=== PATIENT | female | born 1955 | race Caucasian/White ===

== ENCOUNTER 2020-05-18 08:47 | Outpatient (CLI) | payer BC, SELFPAY ==
--- NOTE | ~2020-05-18 | MM_ITS ---
EXAMINATION: MM screening jazmin BI w cresencio HISTORY: Screening mammogram, family history of breast cancer in her mother. TECHNIQUE: Craniocaudal and mediolateral oblique 3-D tomosynthesis images were obtained and synthetic 2-D images were generated. CAD analysis was submitted and interpreted. COMPARISON: 05/13/2019, 04/22/2018, 04/16/2017 BREAST PARENCHYMAL COMPOSITION: There are scattered areas of fibroglandular density. FINDINGS: RIGHT BREAST: An asymmetry is present in the middle third of the slightly inner breast best appreciat ed 6 cm from the nipple on the craniocaudal view. LEFT BREAST: There is no evidence of suspicious mass, calcification, or architectural distortion to s uggest malignancy. There has been no significant interval change. IMPRESSION: 1. Right breast asymmetry on the craniocaudal view. 2. Additional mammographic views and possible breast ultrasound are recommended. BI-RADS Category 0: Incomplete: Needs additional imaging evaluation. Reviewed, dictated and finalized at location A. IMPRESSION: 1. Right breast asymmetry on the craniocaudal view. 2. Additional mammographic views and possible breast ultrasound are recommended . BI-RADS Category 0: Incomplete: Needs additional imaging evaluation.
== END 2020-05-18 08:48 | disposition home or self-care (01) ==
LOC: ANHIMG 08:50
PROVIDERS: PCP Family Medicine Adolescent Medicine; Visit Provider Nurse Practitioner Obstetrics & Gynecology
DX: Z12.31 Encounter for screening mammogram for malignant neoplasm of breast (principal)
CPT/HCPCS: 77063; 77067

== ENCOUNTER 2020-06-22 10:05 | Outpatient (CLI) | payer BC, SELFPAY ==
--- NOTE | ~2020-06-22 | MM_ITS ---
EXAMINATION: MM diagnostic mammo unilat RT HISTORY: Follow-up right breast asymmetry TECHNIQUE: Additional 3-D tomosynthesis images of the right breast were performed and synthetic 2-D i mages were generated. CAD analysis was submitted and interpreted. COMPARISON: 05/18/2020 BREAST PARENCHYMAL COMPOSITION: Breast composed of scattered areas of fibroglandular density FINDINGS: The focal asymmetry medially in the right breast compresses with spot views, compatible wit h superimposed fibroglandular content. No suspicious masses, calcifications or architectural distorti on in the right breast to suggest malignancy. IMPRESSION: 1. No mammographic evidence for malignancy in the right breast. 2. Routine yearly screening mammogram and regular clinical breast examination are recommended. BI-RADS Category 1: Negative Reviewed, dictated and finalized at location A. IMPRESSION: 1. No mammographic evidence for malignancy in the right breast. 2. Routine yearly screening mammogram and regular clinical breast examination a re recommended. BI-RADS Category 1: Negative
== END 2020-06-22 10:06 | disposition home or self-care (01) ==
LOC: ANHIMG 10:06
PROVIDERS: PCP Family Medicine Adolescent Medicine; Visit Provider Nurse Practitioner Obstetrics & Gynecology
DX: R92.8 Other abnormal and inconclusive findings on diagnostic imaging of breast (principal)
CPT/HCPCS: 77065

== ENCOUNTER 2020-10-05 11:15 | Observation (INO) | payer BC, SELFPAY ==
[2020-10-05] VITALS (10 sets, daily range): BP systolic 89–136; BP diastolic 61–82; PULSE 61–98; RESP 14–17; TEMP 36.2–36.7; O2SAT 99–100; BMI 26.0
--- NOTE | ~2020-10-05 | XR_ITS ---
EXAMINATION: XR chest 1V portable EXAM DATE: 10/05/2020 11:51 INDICATION: dyspnea; SOB onset this a.m. TECHNIQUE: Portable AP frontal chest x-ray was obtained. Comparison is made to prior examination from 01/11/2015. FINDINGS: The lungs are clear. There are no pleural effusions. Cardiac silhouette is prominent but magnified on this AP technique. There is no pneumothorax suspected. The bones and soft tissues are unremarkable. IMPRESSION: No acute cardiopulmonary findings. Reviewed, dictated and finalized at location B. KER HAND
--- NOTE | 2020-10-05 11:35 | ECG_ITS ---
Measurements Intervals Darby Rate: 77 P: 25 IA: 137 QRS: 23 QRSD: 101 T: 8 QT: 375 QTc: 427 Interpretive Statements SINUS RHYTHM WITH SINUS ARRHYTHMIA EARLY PRECORDIAL R/S TRANSITION NONSPECIFIC T-WAVE ABNORMALITY- INFERIOR LEADS BASELINE ARTIFACT- I, II, AVR, AVL, AVF BORDERLINE ECG Electronically Signed On 10-05-2020 12:22:03 [employer] by Tony Scott D.O.
--- NOTE | 2020-10-05 11:40 | ED.GENADULT ---
HPI - General Adult General Chief complaint: Shortness of Breath/Dyspnea Stated complaint: sob/heart palp Time Seen by Provider: 10/05/20 11:34 Source: RN notes reviewed History of Present Illness HPI narrative: Patient presents emergency department from home for shortness of breath. Patient states that symptoms began this morning. She states that she would become short of breath with ambulation or exertion that improves with rest. Currently resting in bed the patient has no complaints of shortness of breath. She states when she does become short of breath she does become lightheaded and feels like she may pass out. She denies any fevers or chills chest pain abdominal pain nausea vomiting or any other symptoms. States that she was feeling fine yesterday denies any previous cardiac or pulmonary history Related Data Home Medications Medication Instructions Recorded Confirmed levothyroxine [Synthroid] 10/05/20 Allergies Allergy/AdvReac Type Severity Reaction Status Date / Time No Known Allergies Allergy Verified 10/05/20 11:41 Review of Systems Review of Systems: Narrative: Gen.: Denies fevers or chills ENT: Denies congestion Respiratory: See HPI CV: Denies chest pain or palpitations GI: Denies abdominal pain nausea, emesis or diarrhea Musculoskeletal: Denies back pain or muscle pain Neuro: Denies numbness, tingling, weakness or focal weakness Skin: Denies rash Except as documented, all other systems reviewed and negative [facility] Past Medical History Medical History (Updated 10/05/20 @ 13:10 by Matteo Stark DO) Patient denies significant medical history Social History Social History (Updated 10/05/20 @ 11:41 by Matteo Stark DO) Smoking status: Never smoker Gender identity (if verbalized by the patient): Female Exam Narrative: Exam Narrative: APPEARANCE: No acute distress, nontoxic, resting in bed EYES: EOMI HEENT: Normocephalic, atraumatic, OMM RESPIRATORY: No respiratory distress Clear to auscultation bilaterally with no rhonchi wheezing or rales. CARDIOVASCULAR: Regular rate and rhythm without murmurs rubs or gallops. ABDOMINAL: Soft, nontender, nondistended, no rebound or guarding Rectal: No hemorrhoids or fissures, moderate amount of black stool that is Hemoccult positive MUSCULOSKELETAl: Moves all extremities. No clubbing, cyanosis or edema. NEURO: Awake and alert. Following commands, speech normal, no focal deficits SKIN:: Warm, dry. No rashes lesions or abrasions PSYCHIATRIC: Normal affect/mood, Course Course Emergency Course: Discussed with patient following hemoglobin rating turned. She states she has been having black stools recently. States she was seen by Dr. Lara approximately a month and a half ago for some stomach pain she had been having and was started on fiber at that time Discussed with Dr. Dave presentation work-up. Agrees with consult at this time Discussed with GRAHAM Turner for Dr Carlos presentation work-up. Agrees with admission Discussed with patient and family results of workup and diagnosis. Discussed need for admission. Patient and family understand and agree to current treatment plan Vital Signs Vital signs: Vital Signs Pulse Rate 75 10/05/20 11:36 Temperature 97.2 F L 10/05/20 11:37 Pulse Rate 62 10/05/20 12:41 Respiratory Rate 14 10/05/20 12:41 Blood Pressure 136/78 10/05/20 12:41 Pulse Oximetry 100 10/05/20 12:41 Medical Decision Making Vital Signs Vital Signs: Vital Signs Pulse Rate 75 10/05/20 11:36 Temperature 97.2 F L 10/05/20 11:37 Pulse Rate 62 10/05/20 12:41 Respiratory Rate 14 10/05/20 12:41 Blood Pressure 136/78 10/05/20 12:41 Pulse Oximetry 100 10/05/20 12:41 Lab Data Result diagrams: 10/05/20 11:38 10/05/20 11:38 Labs: Lab Results 10/05/20 10/05/20 10/05/20 Range/Units 11:38 11:38 12:25 WBC 6.5 (4.5-10.0) K/mm3 RBC 2.60 L (
[2020-10-05 11:45] LABS: Basophils Absolute Auto 0.1 K/mm3 (0.0-0.1); Basophils Percent Auto 0.9 % (0.2-1.2); Eosinophils Absolute Auto 0.1 K/mm3 (0-0.3); Eosinophils Percent Auto 2.2 % (0-4.4); Hematocrit 24.3 % (37.0-47.0); Hemoglobin 7.7 g/dL (12.0-15.0); Immature Granulocyte Absolute 0.02 K/mm3 (0.00-0.031); Immature Granulocyte Percent A 0.3 % (0-0.5); Lymphocytes Absolute Auto 1.34 K/mm3 (0.9-3.2); Lymphocytes Percent Auto 20.7 % (18.3-44.2); Mean Corpuscular HGB Conc 31.7 g/dl (32-36); Mean Corpuscular Hemoglobin 29.6 pg (26-34); Mean Corpuscular Volume 93.5 fl (80-100); Mean Platelet Volume 10.6 fl (7.4-10.4); Monocytes Absolute Auto 0.4 K/mm3 (0.1-0.6); Neutrophils Absolute Auto 4.5 K/mm3 (1.3-6.7); Neutrophils Percent Auto 69.9 % (45.5-73.1); Platelet Count Result 245 k/mm3 (150-375); Red Cell Distribution Width 13.3 % (11.5-14.5); White Blood Count 6.5 K/mm3 (4.5-10.0)
[2020-10-05 11:56] LABS: Anion Gap 4 mmol/L (8-16); Blood Urea Nitrogen 48 mg/dL (7-17); Calcium 8.8 mg/dL (8.4-10.2); Carbon Dioxide 27 mmol/L (22-30); Chloride 107 mmol/L (98-107); Estimated CRCL calculation 58 ml/min; Estimated Glomerular Filt Rate > 60; Glucose 114 mg/dL (65-105); Potassium 4.3 mmol/L (3.4-5.0); Sodium 138 mmol/L (137-145)
[2020-10-05 12:05] LABS: NT Pro B Type Natriuretic Pept 109 PG/ML (5-100)
[2020-10-05 12:48] LABS: Partial Thromboplastin Time 28.3 SECONDS (22.3-36.8)
[2020-10-05] MEDS: PANTOPRAZOLE SODIUM IV 40 MG VIAL IV PUSH (12:50)
[2020-10-05 12:52] LABS: D Dimer 0.27 ug/mL (<0.48)
[2020-10-05 12:57] LABS: Troponin I < 0.012 ng/mL (0.000-0.034)
--- NOTE | 2020-10-05 13:05 | WPDGICN ---
Assessment and Plan Assessment and plan (1) Melena: Code(s): K92.1 - Melena Status: Acute Assessment and Plan: Patient with several day history of melenic stools found to be Hemoccult-positive in the emergency room. Decline in hemoglobin consistent with GI blood loss. Patient has taken nonsteroidal anti-inflammatory agents recently for plantar fasciitis. Suspect she has ulcer disease. Plan to place on proton pump inhibitor therapy follow hemoglobin transfuse if necessary. EGD will be performed in the morning. (2) Anemia due to blood loss: Code(s): D50.0 - Iron deficiency anemia secondary to blood loss (chronic) Status: Acute GI Consult Note Consult date/time: 10/05/20 13:05 HPI: Sabina Ruiz is a 65 year old female Seen in evaluation at the request of the emergency room. Patient in usual state of health began to plastic black melenic stools for 1 day. Presented to the emergency room with shortness of breath. In the ER was found to have Hemoccult black stools as well as a decline in hemoglobin to 7.7. patient denies any abdominal pain Recently.. She has been followed in the office with various abdominal pains that have improved with fiber supplementation felt to be related to irritable bowel syndrome. Patient has complaints of plantar fasciitis for which she takes Motrin on a regular basis about 4 day and has done so for some time. She has no prior known history of ulcer disease. Review of Systems Review of Systems: All systems reviewed & are unremarkable except as noted in HPI and below PMFSH Past Medical History Medical History (Updated 10/05/20 @ 13:07 by Sammy Dave MD) Patient denies significant medical history Social History Social History (Updated 10/05/20 @ 11:41 by Matteo Stark DO) Smoking status: Never smoker Gender identity (if verbalized by the patient): Female Meds Home Medications and Allergies Home Medications Medication Instructions Recorded Confirmed Type levothyroxine [Synthroid] 10/05/20 History Allergies Allergy/AdvReac Type Severity Reaction Status Date / Time No Known Allergies Allergy Verified 10/05/20 11:41 Vital Signs Vital Signs - 24 hr 10/05/20 11:36 10/05/20 11:37 10/05/20 12:13 Temperature 97.2 F L Pulse Rate 75 75 68 Respiratory Rate 17 14 Blood Pressure 121/70 124/67 Pulse Oximetry 100 100 10/05/20 12:41 Temperature Pulse Rate 62 Respiratory Rate 14 Blood Pressure 136/78 Pulse Oximetry 100 Exam Narrative: Exam Narrative: Physical exam reveals patient to be alert. Vital signs stable. HEENT exam unremarkable. She is anicteric. Lungs are clear to auscultation and percussion. Heart is without murmur or extra sounds. Abdominal exam bowel sounds are present soft nontender with no hepatosplenomegaly. Results Labs CBC & Chem 7: 10/05/20 11:38 10/05/20 11:38 Labs: Short CBC 10/05/20 Range/Units 11:38 WBC 6.5 (4.5-10.0) K/mm3 Hgb 7.7 L (12.0-15.0) g/dL Hct 24.3 L (37.0-47.0) % Plt Count 245 (150-375) k/mm3 BMP 10/05/20 11:38 Sodium 138 Potassium 4.3 Chloride 107 Carbon Dioxide 27 BUN 48 H Creatinine 0.90 Glucose 114 H Calcium 8.8 Cardiac Enzymes 10/05/20 Range/Units 12:25 Troponin I < 0.012 (0.000-0.034) ng/mL
--- NOTE | 2020-10-05 15:19 | ADMGEN ---
This patient, Sabina Ruiz, was admitted to Medical Room 241-01. Patient/family oriented to hospital policies and general routines including ID bracelet, bed and alarms, visiting hours, pain management, procedures, bathroom and other care routines, personal items, smoking policy, room service/diet, and visiting hours. Information on how to activate the Rapid Response Team has been discussed. Patient/Family are encouraged to report perceived risks to care and to ask questions if they do not understand what they are told or what they should do.
[2020-10-05 15:37] LABS: Hematocrit 23.8 % (37.0-47.0); Hemoglobin 7.4 g/dL (12.0-15.0)
--- NOTE | 2020-10-05 16:00 | PM.IMHP ---
H&P: HPI History of Present Illness Date/Time: 10/05/20 16:00 Chief complaint: Shortness of breath. Narrative: Sabina Ruiz is a previously healthy 65-year-old female who presented to the emergency department earlier today via private vehicle from home for evaluation of shortness of breath. This morning she developed shortness of breath with ambulation, pounding heart, and feelings of lightheadedness, as though she may lose consciousness. The shortness of breath seems to resolve quite quickly with rest. Her hemoglobin and hematocrit on arrival to the emergency department were 7.7 and 24.3% respectively, and with further questioning she does admit that she had a dark bowel movement today which was in fact guaiac positive. Additionally she tells me that for the last 6 months or so she has had intermittent sharp pains in her stomach which she has attributed to hunger pains, as they would improve after eating. About a month ago she had a period of about a week in which she passed dark stools daily, but that did resolve after she increased her fiber intake and her bowels became more regular. She drinks 1 to 2 caffeinated beverages a day. Since May of this year she has been taking 2 Aleve in the morning and 2 Aleve in the evening for symptoms of plantar fasciitis. Interestingly she denies symptoms of GERD and acid reflux. She has not had bloating or vomiting. No hematemesis. Weight has remained stable. Review of Systems Review of Systems: Narrative: Twelve systems were reviewed with pertinent positives and negatives as per HPI. No recent cold or flu symptoms. She denies exposure to those positive for COVID-19. She denies cough and shortness of breath. No fever, chills, or sweats. Except as documented, all other systems were reviewed and are negative. [facility]LY [facility] Past Medical History Medical History (Updated 10/05/20 @ 22:57 by Yue Galvez PA-C) Hypothyroidism Internal hemorrhoids On screening colonoscopy per Dr. Dave in 2017. Plantar fasciitis of right foot Surgical History Surgical History (Updated 10/05/20 @ 22:56 by Yue Galvez PA-C) History of arthroscopy of left knee (~2007) History of repair of right rotator cuff (~09/2011) Family History Family History Sibling Hypertension Mother Breast cancer Father CHF (congestive heart failure) Acute myocardial infarction Social History Social History (Updated 10/05/20 @ 22:58 by Yue Galvez PA-C) Social History: Surrogate decision maker: Miguel Ramirez, spouse. Code status: Full code. Smoking status: Never smoker Alcohol intake: current Drinks per week: 7 Substance use: never Substance use type: does not use Additional living arrangements comments: Resides in [place] with her . They have 1 child. Additional occupation/education comments: Works in [employer]. Gender identity (if verbalized by the patient): Female Spiritual care concerns: No Meds Home Medications and Allergies Home Medications Medication Instructions Recorded Confirmed Type levothyroxine [Synthroid] 88 mcg PO DAILY 10/05/20 10/05/20 History Allergies Allergy/AdvReac Type Severity Reaction Status Date / Time No Known Allergies Allergy Verified 10/05/20 15:54 Vital Signs Vital Signs - 24 hr 10/05/20 11:36 10/05/20 11:37 10/05/20 12:13 Temperature 97.2 F L Pulse Rate 75 75 68 Respiratory Rate 17 14 Blood Pressure 121/70 124/67 Pulse Oximetry 100 100 10/05/20 12:41 10/05/20 14:07 Temperature Pulse Rate 62 74 Respiratory Rate 14 16 Blood Pressure 136/78 124/82 Pulse Oximetry 100 99 Exam Narrative: Exam Narrative: General: Well-developed female sitting up in bed no distress. Weight: 80.1 kg. BMI: 26.1. HEENT: PERRL, EOMI. Sclerae anicteric. Conjunctiva are pale. Oral mucosa moist. Neck: Supple. Respiratory: Lungs are clear
[2020-10-05 18:42] LABS: Hematocrit 22.5 % (37.0-47.0); Hemoglobin 7.2 g/dL (12.0-15.0)
[2020-10-05] MEDS: PANTOPRAZOLE 40 MG TABLET PO (20:02)
[2020-10-05 23:13] LABS: Hematocrit 21.2 % (37.0-47.0)
[2020-10-05 23:20] LABS: Hemoglobin 6.8 g/dL (12.0-15.0)
[2020-10-06] VITALS (20 sets, daily range): BP systolic 100–129; BP diastolic 48–109; PULSE 59–81; RESP 14–20; TEMP 36.4–37.1; O2SAT 97–100
[2020-10-06] MEDS: SODIUM CHLORIDE 0.9% IV 250 ML 30 ML IV CONT (03:36)
[2020-10-06] MEDS: LEVOTHYROXINE SODIUM 88 MCG TABLET PO (05:52)
[2020-10-06 07:51] LABS: Basophils Absolute Auto 0.1 K/mm3 (0.0-0.1); Basophils Percent Auto 0.9 % (0.2-1.2); Eosinophils Absolute Auto 0.2 K/mm3 (0-0.3); Eosinophils Percent Auto 4.1 % (0-4.4); Hematocrit 28.4 % (37.0-47.0); Hemoglobin 9.3 g/dL (12.0-15.0); Immature Granulocyte Absolute 0.03 K/mm3 (0.00-0.031); Immature Granulocyte Percent A 0.5 % (0-0.5); Lymphocytes Absolute Auto 1.67 K/mm3 (0.9-3.2); Lymphocytes Percent Auto 29.6 % (18.3-44.2); Mean Corpuscular HGB Conc 32.7 g/dl (32-36); Mean Corpuscular Hemoglobin 28.8 pg (26-34); Mean Corpuscular Volume 87.9 fl (80-100); Mean Platelet Volume 10.9 fl (7.4-10.4); Monocytes Absolute Auto 0.5 K/mm3 (0.1-0.6); Monocytes Percent Auto 8.7 % (2.6-8.5); Neutrophils Absolute Auto 3.2 K/mm3 (1.3-6.7); Neutrophils Percent Auto 56.2 % (45.5-73.1); Platelet Count Result 205 k/mm3 (150-375); Red Blood Count 3.23 M/mm3 (4.2-5.4); Red Cell Distribution Width 13.9 % (11.5-14.5); White Blood Count 5.6 K/mm3 (4.5-10.0)
[2020-10-06 08:07] LABS: Alanine Aminotransferase 19 U/L (4-35); Albumin Level 3.3 g/dL (3.5-5.1); Alkaline Phosphatase 84 U/L (38-126); Anion Gap 3 mmol/L (8-16); Aspartate Amino Transferase 21 U/L (14-36); Bilirubin,Total 1.4 mg/dL (0.2-1.3); Blood Urea Nitrogen 27 mg/dL (7-17); Calcium 8.8 mg/dL (8.4-10.2); Carbon Dioxide 28 mmol/L (22-30); Chloride 109 mmol/L (98-107); Estimated CRCL calculation 58 ml/min; Estimated Glomerular Filt Rate > 60; Glucose 95 mg/dL (65-105); Magnesium 2.1 mg/dL (1.6-2.3); Sodium 140 mmol/L (137-145)
--- NOTE | 2020-10-06 09:07 | WPDANESEPPF ---
Anes - Initial Pre Proc Eval Procedure: Operation Date: 10/06/20 11:00 Proposed Procedures p Esophagogastroduodenoscopy - Sammy Dave MD Date/Time: 10/06/20 09:07 Surgeon: Veena Carlos MD Pre Op Diagnosis: Shortness of breath. Patient Data Age: 65 Gender: F Height: 1.75 m Weight: 80.1 kg Last Vital Signs Temp 36.6 C 10/06/20 06:30 Pulse 71 10/06/20 06:30 Resp 14 10/06/20 06:30 BP 107/57 L 10/06/20 06:30 Pulse Ox 100 10/06/20 06:30 Allergies Allergy/AdvReac Type Severity Reaction Status Date / Time No Known Allergies Allergy Verified 10/05/20 15:54 Home Medications Medication Instructions Recorded Confirmed Type levothyroxine [Synthroid] 88 mcg PO DAILY 10/05/20 10/05/20 History Laboratory Tests 10/05/20 10/05/20 10/05/20 11:38 11:38 12:25 WBC 6.5 K/mm3 K/mm3 (4.5-10.0) RBC 2.60 M/mm3 L M/mm3 (4.2-5.4) Hgb 7.7 g/dL L g/dL (12.0-15.0) Hct 24.3 % L % (37.0-47.0) MCV 93.5 fl fl (80-100) MCH 29.6 pg pg (26-34) MCHC 31.7 g/dl L g/dl (32-36) RDW 13.3 % % (11.5-14.5) Plt Count 245 k/mm3 k/mm3 (150-375) MPV 10.6 fl H fl (7.4-10.4) Immature Gran % (Auto) 0.3 % % (0-0.5) Neut % (Auto) 69.9 % % (45.5-73.1) Lymph % (Auto) 20.7 % % (18.3-44.2) [place] % (Auto) 6.0 % % (2.6-8.5) Eos % (Auto) 2.2 % % (0-4.4) Baso % (Auto) 0.9 % % (0.2-1.2) Lymph # (Auto) 1.34 K/mm3 K/mm3 (0.9-3.2) [place] # (Auto) 0.4 K/mm3 K/mm3 (0.1-0.6) Eos # (Auto) 0.1 K/mm3 K/mm3 (0-0.3) Baso # (Auto) 0.1 K/mm3 K/mm3 (0.0-0.1) Abs Immat Gran (auto) 0.02 K/mm3 K/mm3 (0.00-0.031) Absolute Neuts (auto) 4.5 K/mm3 K/mm3 (1.3-6.7) Absolute Nucleated RBC 0.0 K/mm3 K/mm3 (0.0-0.012) Nucleated RBC % 0.0 % % (0.0-0.2) PT 14.0 Seconds Seconds (11.1-14.7) INR 1.0 APTT 28.3 SECONDS SECONDS (22.3-36.8) D-Dimer 0.27 ug/mL ug/mL (<0.48) Sodium 138 mmol/L mmol/L (137-145) Potassium 4.3 mmol/L mmol/L (3.4-5.0) Chloride 107 mmol/L mmol/L (98-107) Carbon Dioxide 27 mmol/L mmol/L (22-30) Anion Gap 4 mmol/L L mmol/L (8-16) BUN 48 mg/dL H mg/dL (7-17) Creatinine 0.90 mg/dL mg/dL (0.7-1.0) Estim Creat Clear Calc 58 ml/min ml/min Estimated GFR > 60 (59 - ) Glucose 114 mg/dL H mg/dL (65-105) Calcium 8.8 mg/dL mg/dL (8.4-10.2) Magnesium Total Bilirubin Direct Bilirubin AST ALT Alkaline Phosphatase Troponin I NT-Pro-B Natriuret Pep 109 PG/ML H PG/ML (5-100) Total Protein Albumin TSH (Reflex) Free T4 Blood Type Antibody Screen Crossmatch 10/05/20 10/05/20 10/05/20 12:25 12:25 15:18 WBC RBC Hgb 7.4 g/dL L g/dL (12.0-15.0) Hct 23.8 % L % (37.0-47.0) MCV MCH MCHC RDW Plt Count MPV Immature Gran % (Auto) Neut % (Auto) Lymph % (Auto) [place] % (Auto) Eos % (Auto) Baso % (Auto) Lymph # (Auto) [place] # (Auto) Eos # (Auto) Baso # (Auto) Abs Immat Gran (auto) Absolute Neuts (auto) Absolute Nucleated RBC Nucleated RBC % PT INR APTT D-Dimer Sodium Potassium Chloride Carbon Dioxide Anion Gap BUN C
--- NOTE | 2020-10-06 10:29 | PC.NURSE ---
To GI lab per kali.
[2020-10-06] MEDS: LACTATED RINGERS 1,000 ML 150 ML IV CONT (10:50)
[2020-10-06 11:23] LABS: Free T4 Free Thyroxine Reflex 1.09 ng/dL (0.78-2.19)
[2020-10-06 12:23] LABS: Total Triiodothyronine (T3) 0.94 NG/ML (0.97-1.69)
--- NOTE | 2020-10-06 12:35 | PC.NURSE ---
Pt returned from GI lab per kali.
[2020-10-06] MEDS: PANTOPRAZOLE 40 MG TABLET PO (13:03)
--- NOTE | 2020-10-06 13:25 | PM.DS ---
DS: Admitting Diagnosis Admitting Diagnosis Admitting Diagnosis: Shortness of breath. DS: Discharge Diagnosis Discharge Diagnosis (1) Anemia due to blood loss: Code(s): D50.0 - Iron deficiency anemia secondary to blood loss (chronic) Status: Acute (2) Melena: Code(s): K92.1 - Melena Status: Acute (3) Hypothyroidism: Code(s): E03.9 - Hypothyroidism, unspecified Status: Acute (4) Symptomatic anemia: Code(s): D64.9 - Anemia, unspecified Status: Acute DS: Summary Hospital Course Reason for hospitalization: Anemia Hospital Course: 65 yo who presented to the hospital with fatigue, SOB and epigastric pain. She was found to be anemic with a HB of 7 on admission, while she was here it dropped to 6 and she received two units of PRBC. Patient was found to be guaiac positive and have melena , had an upper endoscopy that showed possible gastritis with no active bleeding, the most likely cause of her gastritis is NSAID related, apparently she was taking scheduled ibuprofen for plantar fascitis,she was advised to avoid NSAID's. She will be discharged on protonix and should follow up with GI and PCP. Status at Discharge Functional status at discharge: independent ambulation Overall status at discharge: patient is back to baseline Time Spent with Patient Time attestation: Total time spent providing and/or coordinating discharge services: Time spent: Greater than 30 minutes Exam Const: General: cooperative, comfortable and no acute distress HENMT: Head: normal to inspection Neck: Neck: normal visual inspection and supple Resp: Effort & Inspection: normal respiratory effort and able to speak in complete sentences Auscultation: clear to auscultation bilaterally Cardio: Rate: regular rate Rhythm: regular rhythm Heart sounds: S1 normal heart sound present and S2 normal heart sound present GI: Inspection: normal to inspection GI Palp: Yes abdominal tenderness and Yes Soft to palpation Auscultation: normal bowel sounds Other: Mild epigastric tenderness Skin: General skin exam: normal color and no rashes or lesions noted Neuro: General: patient oriented x3 and no focal motor deficits Extrem: General: no clubbing, cyanosis or edema DS: Data Data Completed and Pending Pending studies at discharge: Pending at discharge 10/06/20 11:35 Surgical [PTH] Routine Labs on day of discharge: Labs from last 24 hours 1110/06/20 10/06/20 07:37 07:37 07:37 WBC RBC Hgb Hct MCV MCH MCHC RDW Plt Count MPV Immature Gran % (Auto) Neut % (Auto) Lymph % (Auto) [place] % (Auto) Eos % (Auto) Baso % (Auto) Lymph # (Auto) [place] # (Auto) Eos # (Auto) Baso # (Auto) Abs Immat Gran (auto) Absolute Neuts (auto) Absolute Nucleated RBC Nucleated RBC % Sodium Potassium Chloride Carbon Dioxide Anion Gap BUN Creatinine Estim Creat Clear Calc Estimated GFR Glucose Calcium Magnesium Total Bilirubin Direct Bilirubin AST ALT Alkaline Phosphatase Total Protein Albumin TSH (Reflex) 9.020 H Free T4 1.09 Total T3 0.94 L Blood Type Antibody Screen Crossmatch 10/06/20 10/06/20 10/05/20 07:37 07:37 23:03 WBC 5.6 RBC 3.23 L Hgb 9.3 L 6.8 L* Hct 28.4 L 21.2 L MCV 87.9 D MCH 28.8 MCHC 32.7 RDW 13.9 Plt Count 205 MPV 10.9 H Immature Gran % (Auto) 0.5 Neut % (Auto) 56.2 Lymph % (Auto) 29.6 [place] % (Auto) 8.7 H Eos % (Auto) 4.1 Baso % (Auto) 0.9 Lymph # (Auto) 1.67 [place] # (Auto) 0.5 Eos # (Auto) 0.2 Baso # (Auto) 0.1 Abs Immat Gran (auto) 0.03 Absolute Neuts (auto) 3.2 Absolute Nucleated RBC 0.0 Nucleated RBC % 0.0 Sodium 140 Potassium 4.0 Chloride 109 H Carbon Dioxide 28 Anion Gap 3 L BUN 27 H D Creatinine 0.90 Estim
== END 2020-10-06 14:20 | disposition home or self-care (01) ==
LOC: ANHED 13:10 → ANH2MED 22:55
PROVIDERS: Internal Medicine Gastroenterology; Physician Assistant; Admitting Provider Family Medicine; Emergency Provider Emergency Medicine; PCP Family Medicine Adolescent Medicine; Visit Provider Hospitalist
PROC: 0DJ08ZZ Inspection of Upper Intestinal Tract, Via Natural or Artificial Opening Endoscopic (ICD-10-PCS; CPT 43235; principal; 2020-10-06 11:00)
DX: K25.0 Acute gastric ulcer with hemorrhage (principal); D62 Acute posthemorrhagic anemia; M72.2 Plantar fascial fibromatosis; R42 Dizziness and giddiness; E03.9 Hypothyroidism, unspecified; K64.8 Other hemorrhoids; K29.51 Unspecified chronic gastritis with bleeding
CPT/HCPCS: 43239; 36415; 36430; 71045; 80048; 80076; 83735; 83880; 84439; 84443; 84480; 84484; 85014; 85018; 85025; 85380; 85610; 85730; 86850; 86900; 86901; 86923; 88305; 88342; 93005; 96361; 96374; 99285; A9270; C9113; G0378; J2704; J7050; J7120; P9016

== ENCOUNTER → 2021-05-31 11:33 | Outpatient (CLI) | payer OTHER, SELFPAY ==
--- NOTE | ~2021-05-31 | MM_ITS ---
EXAMINATION: MM screening jazmin BI w cresencio HISTORY: Screening TECHNIQUE: Craniocaudal and mediolateral oblique 3-D tomosynthesis images were obtained and synthetic 2-D images were generated. CAD analysis was submitted and interpreted. COMPARISON: Comparison to multiple prior studies sequentially, with oldest reviewed study dated 01/25. BREAST PARENCHYMAL COMPOSITION: There are scattered areas of fibroglandular density. FINDINGS: There is no evidence of suspicious mass, calcification, or architectural distortion to sugg est malignancy in either breast. There has been no suspicious interval change. IMPRESSION: 1. No mammographic evidence of malignancy. 2. Recommend routine screening mammography in one year. BI-RADS Category 1: Negative Reviewed, dictated and finalized at location A.
== END ==
PROVIDERS: PCP Family Medicine Adolescent Medicine; Visit Provider Nurse Practitioner Obstetrics & Gynecology
DX: Z12.31 Encounter for screening mammogram for malignant neoplasm of breast (principal)
CPT/HCPCS: 77063; 77067

== ENCOUNTER → 2021-06-28 08:24 | Outpatient (CLI) | payer OTHER, SELFPAY ==
--- NOTE | ~2021-06-28 | XR_ITS ---
EXAMINATION: XR hip RT min 2V EXAM DATE: 06/28/2021 08:53 INDICATION: No known recent injury provided at this time. Pain of the right hip. Pt c/o pain in right hip lateral side, radiates down right leg, occasional sharp pain through groin x 1 year and a 1/2, n o trauma, no surg., no cancer. TECHNIQUE: Right hip frontal, 'frog leg' projections for interpretation. There is no prior study fo r comparison. FINDINGS: Smooth right hip femoral head contour, no radiographic evidence of avascular necrosis. The re is mild right hip primary osteoarthritis. There are no acute fractures or dislocations identified. There is no subcutaneous gas. The soft tissue is unremarkable. There are no radiopaque foreign b odies. IMPRESSION: Mild right hip osteoarthritis. Reviewed, dictated and finalized at location A.
== END ==
PROVIDERS: PCP Nurse Practitioner Family; Visit Provider Nurse Practitioner Family
DX: M25.551 Pain in right hip (principal); M16.11 Unilateral primary osteoarthritis, right hip
CPT/HCPCS: 73502

== ENCOUNTER → 2021-07-12 11:09 | Outpatient (CLI) | payer OTHER, SELFPAY ==
--- NOTE | ~2021-07-12 | DEXA_ITS ---
Bone Density Report Name: Sabina Ruiz Age: 65 Sex: Female Ethnicity: White Date of : 1955 Indication: postmenopausal; screening for osteoporosis; Referring Provider: Gemini, Maddy Hansen Study: Bone densitometry was performed. Exam Date: July 12, 2021 Accession number: [id number] Bone Density: Region BMD T-score Z-score Classification AP Spine (L1-L4) 0.971 -0.7 1.1 Normal Femoral Neck (Left) 0.791 -0.5 1.0 Normal Total Hip (Left) 0.922 -0.2 1.0 Normal Femoral Neck (Right) 0.818 -0.3 1.2 Normal Total Hip (Right) 0.894 -0.4 0.8 Normal Total Hip Mean 0.908 -0.3 0.9 Normal World Health Organization criteria for BMD impression classify patients as: Normal (T-score at or above -1.0), Osteopenia (T-score between -1.0 and -2.5), or Osteoporosis (T-score at or below -2.5). 10-year Fracture Risk: FRAX not reported because: All T-scores for Spine Total, Hip Total, Femoral Neck at or above -1.0 Previous Exams: Region Exam Age BMD T-score BMD Change BMD Change Date g/cm2 vs Baseline vs Previous AP Spine(L1-L4) 07/12/2021 65 0.971 -0.7 -0.133* -0.038* 11/20/2011 56 1.010 -0.3 -0.094* -0.094* 08/13/2007 51 1.104 0.5 Total Hip(Left) 07/12/2021 65 0.922 -0.2 -0.120* -0.039* 11/20/2011 56 0.960 0.2 -0.081* -0.081* 08/13/2007 51 1.042 0.8 Total Hip(Right) 07/12/2021 65 0.894 -0.4 -0.098* -0.029* 11/20/2011 56 0.923 -0.2 -0.069* -0.069* 08/13/2007 51 0.992 0.4 *Denotes significance at 95% confidence level, LSC for AP Spine = 0.022 g/cm2, LSC for Total Hip = 0.027 g/cm2 Clinical Information Provided by Patient: Has used the following medications: Calcium Patient maximum height was 69 Menopause Age: 53 No regular weight bearing exercise Does not regularly consume dairy products Drinks caffeinated beverages Onset of menses at age 15 Number of children 1 Impression: The patient has normal bone mass. The BMD for the AP Spine(L1-L4) decreased, changing by -0.038 since the last DXA exam. The BMD for the Total Hip(Left) decreased, changing by -0.039 since the last DXA exam. The BMD for the Total Hip(Right) decreased, changing by -0.029 since the last DXA exam. Discussion: BONE DENSITY IS ABOVE THE MINIMUM DESIRABLE LEVEL AT ALL SKELETAL SITES TESTED. This patient?s bone mineral density is above the minimum mika
== END ==
PROVIDERS: PCP Nurse Practitioner Family; Visit Provider Nurse Practitioner Obstetrics & Gynecology
DX: M85.80 Other specified disorders of bone density and structure, unspecified site (principal)
CPT/HCPCS: 77080

== ENCOUNTER 2021-09-13 10:55 | Outpatient (CLI) | payer OTHER, SELFPAY | END 2021-09-13 10:56 | disposition home or self-care (01) | LOC: ANHAUDIO 10:57 | PROVIDERS: PCP Nurse Practitioner Family; Visit Provider Nurse Practitioner Family | DX: H91.93 Unspecified hearing loss, bilateral (principal) | CPT/HCPCS: 92557; 92567 ==

== ENCOUNTER 2022-02-08 08:56 | Outpatient (RCR) | payer OTHER, SELFPAY | END 2022-02-08 23:59 | disposition home or self-care (01) | LOC: ANHAUDIO 08:56 | PROVIDERS: PCP Nurse Practitioner Family; Visit Provider Nurse Practitioner Family | DX: Z46.1 Encounter for fitting and adjustment of hearing aid (principal) | CPT/HCPCS: 99199 ==

== ENCOUNTER → 2022-03-01 09:56 | Outpatient (CLI) | payer OTHER, SELFPAY ==
--- NOTE | ~2022-03-01 | XR_ITS ---
XR lumbar spine 2-3V DATE: 03/01/2022 10:42 INDICATION: Low back pain TECHNIQUE: AP, lateral, coned lateral lumbosacral views COMPARISON: None FINDINGS: There is osteopenia. There is slight levoscoliosis of the lumbar spine. There is minimal degenerative spurring of the lumbar spine. There is moderate loss interspace of heig ht at L5-S1. The sacroiliac joints are intact. IMPRESSION: Slight levoscoliosis Osteopenia Mild degenerative change Reviewed, dictated and finalized at location A.
== END ==
PROVIDERS: PCP Nurse Practitioner Family; Visit Provider Nurse Practitioner Family
DX: M54.50 Low back pain, unspecified (principal); M41.86 Other forms of scoliosis, lumbar region; M85.88 Other specified disorders of bone density and structure, other site
CPT/HCPCS: 72100

== ENCOUNTER → 2022-07-18 11:21 | Outpatient (CLI) | payer OTHER, SELFPAY ==
--- NOTE | ~2022-07-18 | MM_ITS ---
EXAMINATION: MM screening jazmin BI w cresencio HISTORY: Screening mammogram TECHNIQUE: Craniocaudal and mediolateral oblique 3-D tomosynthesis images were obtained and synthetic 2-D images were generated. CAD analysis was submitted and interpreted. COMPARISON: bilateral screening mammogram 06/22/2020 diagnostic right mammogram 05/18/2020, 05/13/2019 bilateral screening mammogram examinations BREAST PARENCHYMAL COMPOSITION: There are scattered areas of fibroglandular density. FINDINGS: There is no evidence of suspicious mass, calcification, or architectural distortion to sugg est malignancy in either breast. There has been no suspicious interval change. IMPRESSION: 1. No mammographic evidence of malignancy. 2. Recommend routine screening mammography in one year. BI-RADS Category 1: Negative Reviewed, dictated and finalized at location A.
== END ==
PROVIDERS: PCP Nurse Practitioner Family; Visit Provider Nurse Practitioner Family
DX: Z12.31 Encounter for screening mammogram for malignant neoplasm of breast (principal)
CPT/HCPCS: 77063; 77067

== ENCOUNTER 2022-10-18 00:15 | Day surgery (SDC) | payer OTHER, SELFPAY ==
[2022-10-09 11:22] VITALS: BMI 26.6
[2022-10-18 12:25] VITALS: BP 111/72; PULSE 66; RESP 18; TEMP 36.1; O2SAT 100; BMI 26.4
--- NOTE | 2022-10-18 12:26 | WPDANESEPPF ---
Anes - Initial Pre Proc Eval Procedure: Operation Date: 10/18/22 13:45 Proposed Procedures p Esophagogastroduodenoscopy - Sammy Dave MD Date/Time: 10/18/22 12:26 Surgeon: Sammy Dave MD Pre Op Diagnosis: low abd pain,hx marcelo ulcer,fecal abnormalities Patient Data Age: 67 Gender: F Height: 1.75 m Weight: 82 kg Allergies Allergy/AdvReac Type Severity Reaction Status Date / Time No Known Allergies Allergy Verified 10/18/22 12:30 Home Medications Medication Instructions Recorded Confirmed Type acetaminophen 500 mg tablet 100 mg PO DAILY 10/09/22 10/18/22 History (Acetaminophen Extra Strength) evening primrose oil 500 mg capsule 500 mg PO DAILY 10/09/22 10/18/22 History levothyroxine 100 mcg tablet 100 mcg PO DAILY 10/09/22 10/18/22 History psyllium husk 0.4 gram capsule 0.4 g PO DAILY 10/09/22 10/18/22 History (Daily Fiber) Patient hx anesthesia problems: none Family hx anesthesia problems: none Results Review: All pre-operative results and documents have been reviewed as part of the pre-operative evaluation. [facility] Past Medical History Medical History Anemia due to blood loss GI bleed Hypothyroidism Internal hemorrhoids On screening colonoscopy per Dr. Dave in 2017. Melena Plantar fasciitis of right foot Surgical History Surgical History History of arthroscopy of left knee (~2007) History of repair of right rotator cuff (~09/2011) Family History Family History Sibling Hypertension Mother Breast cancer Father CHF (congestive heart failure) Acute myocardial infarction Social History Social History Social History: Surrogate decision maker: Miguel Ramirez, spouse. Code status: Full code. Smoking status: Never smoker Alcohol intake: current Drinks per week: 4 Substance use: never Substance use type: does not use Living arrangements: with family Additional living arrangements comments: Resides in [place] with her . They have 1 child. Additional occupation/education comments: Works in [employer]. Gender identity (if verbalized by the patient): Female Spiritual care concerns: No Anes - Eval Final PreProcedure Day of Procedure 10/18/22 12:26 Patient weight: overweight Heart: regular rate and rhythm Lungs: clear to auscultation and normal air movement Airway: Mallampati scale class II Neurological: alert and oriented Last oral intake: >/= 8 hours ASA classification: II Emergent: no Anesthetic plan: proceed Anesthesia type and monitoring: general GIVS Results Review: All pre-operative results and documents have been reviewed as part of the pre-operative evaluation. Informed Consent: The patient's anesthetic plan and its attendant risks and benefits were discussed with the patient/family/POA. Questions were solicited and answers provided to the satisfaction of the patient/family/POA.
[2022-10-18] MEDS: LACTATED RINGERS 1,000 ML 150 ML IV CONT (12:39)
--- NOTE | 2022-10-18 13:28 | WPDHPUPDATE1 ---
History and Physical Update Update Date/Time: 10/18/22 13:28 History and Physical has been reviewed, including an updated exam of the patient. There are NO changes in the patient's condition. Risks, benefits, and alternatives have been discussed and questions answered. Patient agrees to proceed with procedure.
[2022-10-18 14:10] VITALS: BP 122/73; PULSE 65; RESP 23; O2SAT 100
[2022-10-18 14:20] VITALS: BP 137/81; PULSE 60; RESP 20; O2SAT 100
[2022-10-18 14:30] VITALS: BP 144/82; PULSE 61; RESP 14; O2SAT 100
== END 2022-10-18 14:42 | disposition home or self-care (01) ==
PROVIDERS: PCP Nurse Practitioner Family; Visit Provider Internal Medicine Gastroenterology
PROC: 0DJ08ZZ Inspection of Upper Intestinal Tract, Via Natural or Artificial Opening Endoscopic (ICD-10-PCS; CPT 43235; principal; 2022-10-18 13:45)
DX: R10.31 Right lower quadrant pain (principal); R19.5 Other fecal abnormalities; Z87.11 Personal history of peptic ulcer disease; E03.9 Hypothyroidism, unspecified
CPT/HCPCS: 43239; 87081; J2704; J7120

== ENCOUNTER → 2023-08-07 12:05 | Outpatient (CLI) | payer MEDICARE, SELFPAY ==
--- NOTE | ~2023-08-07 | MM_ITS ---
EXAMINATION: MM screening jazmin BI w cresencio HISTORY: Screening mammogram TECHNIQUE: Craniocaudal and mediolateral oblique 3-D tomosynthesis images were obtained and synthetic 2-D images were generated. CAD analysis was submitted and interpreted. COMPARISON: 07/18/2022, 05/31/2021 bilateral screening mammogram examinations BREAST PARENCHYMAL COMPOSITION: There are scattered areas of fibroglandular density. FINDINGS: Stable mild fibroglandular asymmetry There is no evidence of suspicious mass, calcification , or architectural distortion to suggest malignancy in either breast. There has been no suspicious in terval change. IMPRESSION: 1. No mammographic evidence of malignancy. 2. Recommend routine screening mammography in one year. BI-RADS Category 1: Negative Reviewed, dictated and finalized at location A.
== END ==
PROVIDERS: PCP Nurse Practitioner Family; Visit Provider Nurse Practitioner Family
DX: Z12.31 Encounter for screening mammogram for malignant neoplasm of breast (principal)
CPT/HCPCS: 77063; 77067

== ENCOUNTER 2024-05-27 08:08 | Outpatient (CLI) | payer MEDICARE, SELFPAY ==
--- NOTE | ~2024-05-27 | US_ITS ---
Limited ABDOMINAL ULTRASOUND Ordering provider: Suly Lou PA-C History: . R79.89 - Other specified abnormal findings of blood chemi... . Comparison: None. FINDINGS: LIVER: Normal size and echotexture. The liver measures 15.5 cm. Slightly lobulated outline of the berny er is noted. Evaluation for cirrhosis is advised. No focal hepatic lesions or perihepatic fluid colle ctions are identified. Normal flow of the portal vein. GALLBLADDER: Unremarkable. Gallbladder fold is noted. THICKNESS is 2 mm. No evidence for stones, sludge, gallbladder wall thicke roselia or pericholecystic fluid collections. A negative sonographic Deluca's sign was noted. BILIARY DUCTS: No evidence for intra or extrahepatic biliary dilation. Common bile duct measures 3.1 mm in diameter which is within normal limits. PANCREAS: Normal echotexture and size. KIDNEYS: Right measures 4.2x 13.1x 4.8 cm in length cm in length. There is no evidence for hydronephr osis, solid renal mass, renal calculi or perinephric fluid collections. No renal cysts. UPPER ABDOMINAL AORTA: Normal in caliber. IVC: Patent. FREE FLUID: None. IMPRESSION: 1. Slightly lobulated outline of the liver. Evaluation for cirrhosis advised. Otherwise, Unremarkable complete ultrasound of the abdomen. Reviewed, dictated and finalized at location A. IMPRESSION: 1. Slightly lobulated outline of the liver. Evaluation for cirrhosis advised. O therwise, Unremarkable complete ultrasound of the abdomen.
== END 2024-05-27 08:09 | disposition home or self-care (01) ==
PROVIDERS: PCP Family Medicine; Visit Provider Physician Assistant Medical
DX: R79.89 Other specified abnormal findings of blood chemistry (principal)
CPT/HCPCS: 76705

== ENCOUNTER 2024-06-24 09:54 | Outpatient (CLI) | payer MEDICARE, SELFPAY ==
[2024-06-24 11:03] LABS: Hemoglobin 12.6 g/dL (12.0-15.0); Mean Corpuscular HGB Conc 32.3 g/dl (32-36); Mean Corpuscular Hemoglobin 31.6 pg (26-34); Mean Corpuscular Volume 97.7 fl (80-100); Mean Platelet Volume 11.5 fl (7.4-10.4); Platelet Count Result 224 k/mm3 (150-375); Red Blood Count 3.99 M/mm3 (4.2-5.4); Red Cell Distribution Width 12.3 % (11.5-14.5); White Blood Count 5.4 K/mm3 (4.5-10.0)
[2024-06-24 11:12] LABS: Prothrombin Time 13.3 Seconds (11.1-14.7)
[2024-06-24 11:23] LABS: Alanine Aminotransferase 36 U/L (6-35); Albumin Level 4.3 g/dL (3.5-5.1); Alkaline Phosphatase 74 U/L (38-126); Anion Gap 6 mmol/L (4-12); Aspartate Amino Transferase 31 U/L (14-36); Bilirubin,Total 1.3 mg/dL (0.2-1.3); Blood Urea Nitrogen 18 mg/dL (7-17); Calcium 9.8 mg/dL (8.4-10.2); Carbon Dioxide 33 mmol/L (22-30); Chloride 101 mmol/L (98-107); Estimated Glomerular Filt Rate > 60; Glucose 85 mg/dL (65-110); Potassium 4.1 mmol/L (3.4-5.0); Sodium 140 mmol/L (137-145)
[2024-06-24 11:32] LABS: Iron 88 ug/dL (37-170)
[2024-06-24 11:41] LABS: Percent Iron Saturation 28 % (20-50)
[2024-06-24 12:20] LABS: Hepatitis B Surface Antigen Negative (Negative)
[2024-06-24 12:26] LABS: HAV RESULT Negative (Negative); Hepatitis B Core IgM Result Negative (Negative)
[2024-06-24 12:38] LABS: Hepatitis B Surface Anti Res Negative; Hepatitis C Virus Antibody Negative (Negative)
[2024-06-25 16:12] LABS: Ceruloplasmin 26 mg/dL (14-48)
[2024-06-26 02:37] LABS: Hepatitis A Antibody Total NON-REACTIVE (NON-REACTIVE); Hepatitis B Core Ab Total NON-REACTIVE (NON-REACTIVE)
[2024-06-26 12:13] LABS: Alpha-1-Antitrypsin, QN 135 mg/dL (83-199)
[2024-07-02 12:02] LABS: Actin Antibody (IgG) <20 U (<20)
[2024-07-03 07:46] LABS: Fibrosis Score 0.41
[2024-07-03 07:47] LABS: Fibrosis Stage F1-F2
[2024-07-03 07:49] LABS: Necroinflammat Act Grade A0
[2024-07-03 12:43] LABS: LKM 1 Antibody <=20.0 U (<=20.0)
[2024-07-06 20:33] LABS: Mitochondrial (M2) Ab (IgG) <20.0 U
[2024-07-10 00:10] LABS: ALT 26 U/L (6-29); Alpha Fetoprotein Tumor Marker 4.3 ng/mL; Alpha-2-Macroglobulin 207 mg/dL (106-279); Apolipoprotein A1 181 mg/dL (101-198); GGT 56 U/L (3-65); Haptoglobin 67 mg/dL (43-212); Reference ID 5047934; Total Bilirubin 0.8 mg/dL (0.2-1.2)
== END 2024-06-24 09:55 | disposition home or self-care (01) ==
LOC: ANHLAB 09:57
PROVIDERS: PCP Family Medicine; Visit Provider Nurse Practitioner
DX: K74.60 Unspecified cirrhosis of liver (principal); R93.2 Abnormal findings on diagnostic imaging of liver and biliary tract; R74.8 Abnormal levels of other serum enzymes
CPT/HCPCS: 36415; 80048; 80074; 80076; 81596; 82103; 82105; 82390; 82728; 83520; 83540; 83550; 85027; 85610; 86038; 86039; 86364; 86376; 86704; 86706; 86708; 87340

== ENCOUNTER 2024-09-02 12:23 | Outpatient (CLI) | payer MEDICARE, SELFPAY ==
--- NOTE | ~2024-09-02 | MM_ITS ---
EXAMINATION: MM screening jazmin BI w cresnecio HISTORY: Screening TECHNIQUE: Craniocaudal and mediolateral oblique 3-D tomosynthesis images were obtained and synthetic 2-D images were generated. CAD analysis was submitted and interpreted. COMPARISON: Comparison to multiple prior studies sequentially, with oldest reviewed study dated 05/13. BREAST PARENCHYMAL COMPOSITION: Not dense: There are scattered areas of fibroglandular density. FINDINGS: There is no evidence of suspicious mass, calcification, or architectural distortion to sugg est malignancy in either breast. There has been no suspicious interval change. IMPRESSION: 1. No mammographic evidence of malignancy. 2. Recommend routine screening mammography in one year. BI-RADS Category 1: Negative Reviewed, dictated and finalized at location B.
== END 2024-09-02 12:24 | disposition home or self-care (01) ==
LOC: MICIMG 12:24
PROVIDERS: PCP Student in an Organized Health Care Education/Training Program; Visit Provider Student in an Organized Health Care Education/Training Program
DX: Z12.31 Encounter for screening mammogram for malignant neoplasm of breast (principal)
CPT/HCPCS: 77063; 77067

== ENCOUNTER 2025-01-27 09:54 | Outpatient (CLI) | payer MEDICARE, SELFPAY ==
--- NOTE | ~2025-01-27 | DEXA_ITS ---
Bone Density Report Name: ANA BANGURA Age: 69 Sex: Female Ethnicity: White Date of : 1955 Indication: postmenopausal; screening for osteoporosis; height loss; Referring Provider: SUELLEN LIPSCOMB Study: Bone densitometry was performed. Exam Date: January 27, 2025 Accession number: [id number] Bone Density: Region BMD T-score Z-score Classification AP Spine(L1-L4) 0.945 -0.9 1.1 Normal Femoral Neck (Left) 0.731 -1.1 0.6 Osteopenia Total Hip (Left) 0.923 -0.2 1.3 Normal Femoral Neck (Right) 0.750 -0.9 0.8 Normal Total Hip (Right) 0.901 -0.3 1.1 Normal Total Hip Mean 0.912 -0.3 1.2 Normal World Health Organization criteria for BMD impression classify patients as: Normal (T-score at or above -1.0), Osteopenia (T-score between -1.0 and -2.5), or Osteoporosis (T-score at or below -2.5). 10-year Fracture Risk(1): Major Osteoporotic Fracture 8.9% Hip Fracture 0.9% Reported Risk Factors: [place] (), Neck BMD=0.731, BMI=25.7 (1) FRAX(R) Version 3.08. Fracture probability calculated for an untreated patient. Fracture probability may be lower if the patient has received treatment. Clinical Information Provided by Patient: Has used the following medications: Calcium Patient maximum height was 69 Menopause Age: 53 No regular weight bearing exercise Drinks caffeinated beverages Onset of menses at age 15 Number of children 1 Impression: The patient has low bone mass, based on the Left Femoral Neck T-score. The patient has an estimated ten-year risk of hip fracture of 0.9% and an estimated ten-year risk of major fracture of 8.9%, based on the WHO FRAX algorithm. Discussion: BONE DENSITY IS LOW AT ONE OR MORE SKELETAL SITES. This patient's lowest T-score is low at one or more skeletal sites. It meets the World Health Organization's (WHO) criteria for ?low bone mass? (T-score between -1.0 and -2.5). The patient's 10-year risk of fracture as calculated by FRAX is less than the threshold where pharmacological therapy is recommended by the National Osteoporosis Foundation (NOF). However, all treatment decisions require clinical judgment and consideration of individual patient factors, including patient preferences, comorbidities, previous drug use, risk factors not captured in the FRAX model (e.g., frailty, falls, vitamin D deficiency, increased bone turnover, interval significant decline in bone density) and possible under or overestimation of fracture risk by FRAX. The patient should follow a healthful lifestyle (good nutrition with adequate calcium and vitamin D, and appropriate weight-bearing exercise). Follow-Up: Consider repeating this study in 2 to 3 years to reassess this patient's status, or sooner if there is some new clinical indication. Reported by: REINALDO on 01/27/2025 10:27:00 AM. Reviewed, dictated and finalized at location A. [facility]
--- OUTSIDE RECORDS SUMMARY | 2025-01-27 11:05 | XMS_ITS | Referral Summary ---
Author Organization [facility] Address [address] [place] [id number] Care Team Providers Care Tube Splicer Name Role Phone Victoria Sam MD Primary Care Provider [phone] Encounters Date Type Department Care Team Description 01/07/2025 Telephone [facility] Gastroenterology [address] [place] [address] [address] [place] [address] [place] [address] Priscilla Landaverde RN 12/23/2024 Telephone [facility] Gastroenterology [address] [place] [address] 12th [place] [address] [place] [address] Rupali Minaya Labs early January from Last 3 Months Allergies No known active allergies Medications levothyroxine (SYNTHROID) 75 mcg tablet 06/03/2024 Active Active Problems Problem Noted Date Diagnosed Date Elevated liver enzymes 06/29/2024 Assessment & Plan (06/29/2024 9:25 AM CDT): Patient with history of elevated liver enzymes as well as elevated indirect hyperbilirubinemia, imaging results showing possible cirrhosis. I will obtain complete serology workup to rule out all causes of liver disease. I will also obtain a FibroScan to evaluate if patient does indeed have significant hepatic fibrosis and if any steatosis is present. I explained to patient she may need additional workup depending on results. Discussed the possibility of obtaining MR with elastography and/or liver biopsy. I instructed patient to hold off on drinking any alcohol especially while her liver enzymes are elevated and there is concern for fibrosis. I am not concerned about the elevated indirect hyperbilirubinemia as this is consistent with Gilbert's. I explained to patient that Gilbert syndrome is a condition that causes a substance called bilirubin to build up in the blood. Often, Gilbert syndrome does not cause any symptoms. If it does, the most common symptom is jaundice. Jaundice makes the skin or whites of the eyes look yellow. In people with Gilbert syndrome, jaundice can be triggered by a fever, physical effort such as hard exercise, stress, or not eating. Gilbert syndrome does not need treatment. She will return to clinic in 1 year or sooner if needed. Social History Tobacco Use Types Packs/Day Years Used Date Smoking Tobacco: Never Passive Smoke Exposure: Never Smokeless Tobacco: Never Tobacco Cessation:Counseling Given: Not Answered AUDIT-C Answer Date Recorded Q1: How often do you have a drink containing alc ohol? Monthly or less 06/29/2024 Q2: How many drinks containi ng alcohol do you have on a typical day when you are drinking? 1 or 2 06/29/2024 Q3: How often do you have si x or more drinks on one occasion? Never 06/29/2024 Personal Safety Answer Date Recorded Getting School Help Needed Not on file 06/25 Comments Unknown Sex and Gender Information Value Date Recorded Sex Assigned at Not on file Legal Sex Female 2:23 PM CDT Gender Identity Not on file Sexual Orientation Not on file Last Filed Vital Signs Vital Sign Reading Time Taken Comments Blood Pressure 132/75 06/29/2024 8:58 AM CDT Pulse 61 06/29/2024 8:58 AM CDT Temperature 36.3 C (97.3 F) 06/29/2024 8:58 AM CDT Respiratory Rate 16 06/29/2024 8:58 AM CDT Oxygen Saturation 99% 06/29/2024 8:58 AM CDT Inhaled Oxygen Concentration - - Weight 76.1 kg (167 lb 12.8 oz) 06/29/2024 8:58 AM CDT Height 175.3 cm (5' 9 ) 06/29/2024 8:58 AM CDT Body Mass Index 24.78 06/29/2024 8:58 AM CDT Plan of Treatment Not on file Procedures Procedure Name Priority Date/Time Associated Diagnosis Comments HEPATIC FUNCTION PANEL Routine 01/06/2025 10:59 AM ASSET PROTECTION OFFICER Elevated liver enzymes HEPATITIS C ANTIBODY Routine 06/29/2024 9:49 AM CDT Elevated liver enzymes from Last 3 Months or Most Recently Relevant to Health Maintenance Results * (ABNORMAL) Hepatic function panel (01/06/2025 10:59 AM ASSET PROTECTION OFFICER) [facility] Protein, sr 6.6 6.0 - 8.5 g/dL [facility] - 01 Albumin 4.3 3.9 - 4.9 g/dL [facility] - 01 Bilirubin, Total 1.6(H) 0.0 - 1.2 mg/dL [facility] - 01 Bilirubin, direct 0.45(H) 0.00 - 0.40 mg/dL [facility] - 01 Alk phos 101 44 - 121 IU/L [facility] - 01 AST 23 0 - 40 IU/L [facility] - 01 ALT 39(H) 0 - 32 IU/L [facility] - 01 Blood 01/06/2025 10:5 9 AM ASSET PROTECTION OFFICER 01/06/2025 Narrative [facility] - 01/07/2025 3:35 AM ASSET PROTECTION OFFICER Performed at: [facility] [id number] Industrial Truck Driver: Jose Goel PhD, Phone: [phone] Jazz Corado REGIONAL ACCOUNT MANAGER LAB BLOOD ORDERABLES [facility] - 01 * Hepatitis C antibody Blood (06/29/2024 9:49 AM CDT) [facility] Hep C Ab Nonreactive Nonreactive Comment: Interpretive Data Nonreactive: Antibodies to HCV not detected. Does NOT exclude the possibility of recent exposure to HCV. Equivocal: Equivocal for HCV antibodies. Supplemental molecular testing will be automatically performed to determine infection status in accordance with current CDC screening recommendations. Reactive: Positive for HCV antibodies. This may represent current or past HCV infection. Supplemental molecular testing will be automatically performed to determine current infection status in accordance with current CDC screening recommendations. Interpretive data was last revised on 2020. Testing performed by: [facility] [facility], [place]., [address] Blood 06/29/2024 9:49 AM CDT 06/29/2024 1:03 PM CDT Jazz Corado REGIONAL ACCOUNT MANAGER LAB MICROBIOLOGY - GENER AL ORDERABLES Edited Result - Final [facility]IN [facility] [id number] [facility]. [employer] [place] [address] from Last 3 Months or Most Recently Relevant to Health Maintenance Insurance Network MEDICARE PPO [employer] MEDICARE PPO Care Teams Tube Splicer Relationship Specialty Start Date End Date Victoria Sam MD [address] [place] [address] PCP - General Family Medicine 06/26/24
--- OUTSIDE RECORDS SUMMARY | 2025-01-27 11:05 | XMS_ITS | Referral Summary ---
Author Organization [facility] Address [address] [place] [address] Care Team Providers Care Engine Tester Name Role Phone Yaniv Callaway Primary Care Provider Unavailab le Source Comments [facility],non-owned Affiliates and Associated Physician Practices is amultiple site organization consisting of ambulatory clinics and hospital sitesin [place], [place], [place] and [place]. This disclosure is being madepursuant to the Care Everywhere program and may not contain all information available regarding this patient. Last updated 18.[facility] [employer] Social History Tobacco Use Types Packs/Day Years Used Date Smoking Tobacco: Never Assessed Sex and Gender Information Value Date Recorded Sex Assigned at Not on file Gender Identity Not on file Sexual Orientation Not on file Plan of Treatment Not on file Care Teams Engine Tester Relationship Specialty Start Date End Date Yaniv Callaway Update Information PCP - General 03/19/19
--- OUTSIDE RECORDS SUMMARY | 2025-01-27 11:05 | XMS_ITS | Clinical Summary ---
Author Organization [facility] Address [address] [place] [address] Care Team Providers Care Pre K Special Education Teacher Name Role Phone Yaniv Callaway Primary Care Provider Unavailab le Source Comments [facility],non-owned Affiliates and Associated Physician Practices is amultiple site organization consisting of ambulatory clinics and hospital sitesin [place], [place], [place]. This disclosure is being madepursuant to the Care Everywhere program and may not contain all information available regarding this patient. Last updated 18.[facility] [employer] Social History Tobacco Use Types Packs/Day Years Used Date Smoking Tobacco: Never Assessed Sex and Gender Information Value Date Recorded Sex Assigned at Not on file Gender Identity Not on file Sexual Orientation Not on file Plan of Treatment Health Maintenance Due Date Last Done Comments BONE DENSITY TESTING 1955 COLOGUARD (AGES 45-75) - COL ON CA SCREENING 1955 COLON MONITORING 1955 COLONOSCOPY - COLON CA SCREENING 1956 CT COLONOGRAPHY - COLON CA SCREENING 1955 Colorectal Cancer Screening 1955 FIT - COLON CA SCREENING 1955 FLEX SIG - COLON CA SCREENING 1955 LIPID TESTING 1955 MAMMOGRAM 1955 HEPATITIS C SCREENING 09/05/1974 DTAP/TDAP/TD VACCINES (1 - Tdap) 1975 PNEUMOCOCCAL VACCINE 50+ (1 of 1 - PCV) 2006 ZOSTER VACCINE (1 of 2) 2006 COVID-19 VACCINE ( - 2023-2 5 season) 2024 INFLUENZA VACCINE (#1) 2024 DEPRESSION SCREENING 12/02/2024 Respiratory Syncytial Virus (RSV) Vaccine Pt: or over 60 yrs (1 - 1-dose 75+ series) 2031 HEPATITIS B VACCINE Aged Out No longe r eligible based on patient's age to complete this topic HIB VACCINE Aged Out No longer eligi ble based on patient's age to complete this topic HPV VACCINE Aged Out No longer eligi ble based on patient's age to complete this topic MENINGOCOCCAL (Group B) VACCINE Aged Out No longer eligible based on patient's age to complete this topic MENINGOCOCCAL VACCINE Aged Out No luisa alejandra eligible based on patient's age to complete this topic Care Teams Pre K Special Education Teacher Relationship Specialty Start Date End Date Yaniv Callaway Update Information PCP - General 03/19/19
--- OUTSIDE RECORDS SUMMARY | 2025-01-27 11:05 | XMS_ITS | Encounter Summary ---
Author Organization [facility] Address [address] [place] [address] Care Team Providers Care Structural Steel Detailer Name Role Phone Yaniv Callaway Primary Care Provider Unavailab le Encounter Details Date Type Department Care Team (Late st Contact Info) Description 03/19/[address] [facility] [address] [place] [id number] Jae [place] [address] Social History Tobacco Use Types Packs/Day Years Used Date Smoking Tobacco: Never Assessed Sex and Gender Information Value Date Recorded Sex Assigned at Not on file Gender Identity Not on file Sexual Orientation Not on file documented as of this encounter Plan of Treatment Not on file documented as of this encounter Procedures Procedure Name Priority Date/Time Associated Diagnosis Comments DERMATOPATHOLOGY Routine 03/18/2019 12:0 0 AM CDT documented in this encounter Results * DERMATOPATHOLOGY (03/18/2019 12:00 AM CDT) Case Report Dermatopathology Report Case: [id number] Authorizing Provider: Jae York MD Collected: 03/18/2019 12:00 AM Pathologist: Chacha Martins MD Received: 03/19/2019 01:35 PM Specimen: Skin, right side abdomen 9 12:50 PM CDT DERMATOPATHOLOGY LABORATORY Final Diagnosis Specimen A. SKIN, right side abdomen: VERRUCA VULGARIS, IRRITATED AND INFLAMED (B07.8) 9 12:50 PM CDT DERMATOPATHOLOGY LABORATORY Clinical History R/O KA,VV,AK,SCC 12:50 PM CDT DERMATOPATHOLOGY LABORATORY Gross Description Specimen A: Received is one formalin filled container labeled with the patients name and designated right side abdomen. The specimen consists of a shave removal (two pieces) measuring 7x6x5 inked, and 4x4x7 mm. Jar 0+. 12:50 PM CDT DERMATOPATHOLOGY LABORATORY Microscopic Description Specimen A. SKIN, right side abdomen: Sections show papillomatosis with overlying parakeratosis. Some of the cells within the granular layer show coarsened keratohyalin granules. Within the dermis, dilated vessels, and a patchy lymphocytic infiltrate are present. 12:50 PM CDT DERMATOPATHOLOGY LABORATORY Disclaimer An external and internal positive and negative controls are appropriate for the histochemical, immunohistochemical and immunofluorescence stain(s) in this case (if any), except where stated explicitly. The performance characteristics of the stain(s) cited in this report were developed and its performance characteristic determined by the Dermatopathology Laboratory at [facility], directed by Dr. Tyson Guajardo. These tests need not be, and therefore are not, approved by the [place] Food and Drug Administration. The tests are used for clinical purposes. Billing Codes Specimen Charges Stain Charges 01633 1 12:50 PM CDT DERMATOPATHOLOGY LABORATORY Embedded Images 12:50 PM CDT DERMATOPATHOLOGY LABORATORY Pathology/Cytolog y TISSUE SPECIMEN FROM SKIN / Unknown 03/18/2019 03/19/2019 1:35 PM CDT Jae York MD LAB - PATHOLOGY/CYTO LOGY ORDERABLES DERMATOPATHOLOGY LABORATORY [facility] - Department of Dermatology [address] [place] [address], [facility] [phone] documented in this encounter Visit Diagnoses Not on filedocumented in this encounter Care Teams Structural Steel Detailer Relationship Specialty Start Date End Date Yaniv Callaway Update Information PCP - General 03/19/19 documented as of this encounter
--- OUTSIDE RECORDS SUMMARY | 2025-01-27 11:05 | XMS_ITS | Patient Health Summary ---
Author Organization [facility] Address [address] [place] [address] Care Team Providers Care Radiagraph Operator Name Role Phone Yaniv Callaway Primary Care Provider Unavailab le Note from [facility],non-owned Affiliates and Associated Physician Practices is amultiple site organization consisting of ambulatory clinics and hospital sitesin [place], [place], [place] and [place]. This disclosure is being madepursuant to the Care Everywhere program and may not contain all information available regarding this patient. Last updated 18.[facility] Social History Tobacco Use Types Packs/Day Years Used Date Smoking Tobacco: Never Assessed Sex and Gender Information Value Date Recorded Sex Assigned at Not on file Gender Identity Not on file Sexual Orientation Not on file Procedures * DERMATOPATHOLOGY(Performed 03/18/2019) Results * DERMATOPATHOLOGY (03/18/2019 12:00 AM CDT) Case Report Dermatopathology Report Case: [id number] Authorizing Provider: Jae York MD Collected: 03/18/2019 12:00 AM Pathologist: Chacha Martins MD Received: 03/19/2019 01:35 PM Specimen: Skin, right side abdomen 9 12:50 PM CDT DERMATOPATHOLOGY LABORATORY Final Diagnosis Specimen A. SKIN, right side abdomen: VERRUCA VULGARIS, IRRITATED AND INFLAMED (B07.8) 9 12:50 PM CDT DERMATOPATHOLOGY LABORATORY Clinical History R/O KA,VV,AK,SCC 9 12:50 PM CDT DERMATOPATHOLOGY LABORATORY Gross Description [...] characteristic determined by the Dermatopathology Laboratory at [facility], directed by Dr. Tyson Guajardo. These tests need not be, and therefore are not, approved by the [place] Food and Drug Administration. The tests are used for clinical purposes. Billing Codes Specimen Charges Stain Charges 92564 1 12:50 PM CDT DERMATOPATHOLOGY LABORATORY Embedded Images 12:50 PM CDT DERMATOPATHOLOGY LABORATORY Pathology/Cytolog y TISSUE SPECIMEN FROM SKIN / Unknown 03/18/2019 03/19/2019 1:35 PM CDT Jae York MD LAB - PATHOLOGY/CYTO LOGY ORDERABLES DERMATOPATHOLOGY LABORATORY [facility] - Department of Dermatology [address]th [address] Lab [address] [phone] Care Teams Radiagraph Operator Relationship Specialty Start Date End Date Yaniv Callaway Update Information PCP - General 03/19/19
--- OUTSIDE RECORDS SUMMARY | 2025-01-27 11:05 | XMS_ITS | Clinical Summary ---
Author Organization [facility] Address [address] [place] [id number] Care Team Providers Care 8Th Grade Teacher Name Role Phone Victoria Sam MD Primary Care Provider [phone] Allergies No known active allergies Medications levothyroxine [...] in 1 year or sooner if needed. Encounters Date Type Department Care Team Description 01/07/2025 Telephone [facility] Gastroenterology [address] [place] [address] [place] [address] Priscilla Landaverde RN 12/23/2024 Telephone [facility] [address] [place] [address] [place] [address] Rupali Minaya Labs early January from Last 3 Months Medical History Medical History Date Comments Hypothyroid Social History Tobacco Use Types Packs/Day Years [...] on file Sexual Orientation Not on file Obstetrics History Last Filed Vital Signs Vital Sign Reading [...] 06/29/2024 8:58 AM CDT Plan of Treatment Health Maintenance Due Date Last Done Comments Colon Cancer Screening-Colonoscopy 1955 Depression Screening 1955 Fall Risk Assessment 1955 Osteoporosis Screening-Bone Density Scan 1955 DTaP/Tdap/Td Vaccine (1 - Tdap) 1967 Zoster Vaccine (1 of 2) 2006 Well Visit 65+ 2021 Breast Cancer Screening-Mammogram 05/31/2022 05/31/2021, 05/18/2020, 07/06/2009 Covid-19 Vaccine (5 - 2023-2 5 season) 2024 10/31/2022, 04/02/2022, 09/25/2021, Additional history exists Influenza Vaccine (#1) 2024 3, 09/19/2022, 10/18/2021, Additional history exists Pneumococcal vaccine 65+ Completed 04/02/2022 Hepatitis B Screening Completed 06/29/2024 Hepatitis C Screening Completed 06/29/2024 Procedures Procedure Name Priority Date/Time Associated Diagnosis Comments HEPATIC FUNCTION PANEL Routine 01/06/2025 10:59 AM [employer] Elevated liver enzymes HEPATITIS C ANTIBODY Routine 06/29/2024 9:49 AM CDT Elevated liver enzymes from Last 3 Months or Most Recently Relevant to Health Maintenance Results * (ABNORMAL) Hepatic function panel (01/06/2025 10:59 AM [employer]) [facility] Protein, sr 6.6 6.0 - 8.5 [...] - 01 Blood 01/06/2025 10:5 9 AM [employer] 01/06/2025 Narrative [facility] - 01/07/2025 3:35 AM [employer] Performed at: [address] [place] [id number] Wool Fleece Sorter: Jose Goel PhD, Phone: [phone] Jazz Corado NP LAB BLOOD ORDERABLES Fin al Result Performing Organization Address [facility] Co de Phone Number [facility] - 01 * Hepatitis C antibody Blood (06/29/2024 9:49 AM CDT) Hep C Ab Nonreactive Nonreactive Comment: Interpretive [...] last revised on 2020. Testing performed by: [facility], [address] [place] [address]., [id number] Blood 06/29/2024 9:49 AM CDT 06/29/2024 1:03 PM CDT Jazz Corado NP LAB MICROBIOLOGY - GENER AL ORDERABLES Edited Result - Final Performing Organization Address [facility] de Phone Number [facility] [address] [facility]. [place] [address] from Last 3 Months or Most Recently Relevant to Health Maintenance Insurance [employer] MEDICARE PPO [employer] MEDICARE PPO Care Teams 8Th Grade Teacher Relationship Specialty Start Date End Date Victoria Sam MD [address] [place], [place] [phone] PCP - General Family Medicine 06/26/24
--- OUTSIDE RECORDS SUMMARY | 2025-01-27 11:05 | XMS_ITS | Clinical Summary ---
Author Organization [facility] Address [address] [place] [phone] Care Team Providers Care Orange Grower Name Role Phone Talon Rosario MD Primary Care Provider [phone] Allergies No known active allergies Medications No known medications Active Problems Problem Noted Date Diagnosed Date Diffuse cystic mastopathy 07/06/2009 Arthropathy, unspecified, site unspecified Family History Medical History Relation Name Comments Cancer Brother vocal card marilyn jarrod w/radiation Relation Name Status Comments Brother Social History Tobacco Use Types Packs/Day Years Used Date Smoking Tobacco: Never Alcohol Use Standard Drinks/Week Comments Yes 0 (1 standard drink = 0.6 oz pur e alcohol) moderate Comments No Sex and Gender Information Value Date Recorded Sex Assigned at Not on file Legal Sex Female 5:42 AM [employer] CHIE[employer] Gender Identity Not on file Sexual Orientation Not on file Last Filed Vital Signs Vital Sign Reading Time Taken Comments Blood Pressure 118/60 07/06/2009 11:58 AM CDT Pulse - - Temperature - - Respiratory Rate - - Oxygen Saturation - - Inhaled Oxygen Concentration - - Weight 64.9 kg (143 lb) 07/06/2009 11:58 AM CDT Height 175.3 cm (5' 9 ) 07/06/2009 11:58 AM CDT Body Mass Index 21.12 07/06/2009 11:58 AM CDT Plan of Treatment Health Maintenance Due Date Last Done Comments DTAP/TDAP/TD VACCINES (1 - Tdap) 1975 COLORECTAL SCREENING 2001 Colorectal Cancer Screening 2001 FIT-DNA Q 3 years 2001 FIT/FOBT Q 1 year 2001 Flex Sig/CT Colonography Q 5 years 2001 PNEUMOCOCCAL VACCINE 65+ YEARS (1 of 1 - PCV) 09/09/20 06 ZOSTER VACCINE (1 of 2) 2006 BREAST CANCER SCREENING 07/06/2010 07/06/2009 OSTEOPOROSIS SCREENING 2021 INFLUENZA VACCINE (#1) 2024 RSV VACCINE (60+ or ) (1 - 1-dose 75+ series) 2031 Procedures Procedure Name Priority Date/Time Associated Diagnosis Comments MAMMO SCREEN BILAT W OR WO CAD Routine 07/06/2009 from Last 3 Months or Most Recently Relevant to Health Maintenance Results * MAMMO DIGITAL SCREEN BILAT (07/06/2009) Anatomical Region Laterality Modality Breast Bilateral Other us Rocio Bateman MD MAMMO ORDERABLES Final Result from Last 3 Months or Most Recently Relevant to Health Maintenance Insurance [id number]TRUE BLUE PPO Care Teams Orange Grower Relationship Specialty Start Date End Date Talon Rosario MD [address] [place] [address] [address] [place] [address] PCP - General 03/16/09
== END 2025-01-27 09:55 | disposition home or self-care (01) ==
LOC: ANHIMG 09:55
PROVIDERS: PCP Student in an Organized Health Care Education/Training Program; Visit Provider Student in an Organized Health Care Education/Training Program
DX: M85.852 Other specified disorders of bone density and structure, left thigh (principal); Z78.0 Asymptomatic menopausal state
CPT/HCPCS: 77080